=== PATIENT | female | born 1980 | race Caucasian/White ===

== ENCOUNTER 2016-06-21 01:58 | Emergency (ER) | payer MEDICAID, SELFPAY ==
[2016-06-21] MEDS ORDERED: HYDROcodone/Acetaminophen 10/325 mg Tablet ONE (02:21)
--- NOTE | 2016-06-21 08:43 | RAD ---
LEFT KNEE 4 VIEWS: Date: 06/21/16 HISTORY: Trauma. Left knee pain. FINDINGS/IMPRESSION: Comparison made with exam of 07/08/15. Postop changes and degenerative changes are again seen. No acute fracture or dislocation is identifi ed. POS: [facility]
== END 2016-06-21 03:25 | disposition home or self-care (01) ==
LOC: MADERS 01:58
DX: S83.92XA Sprain of unspecified site of left knee, initial encounter (principal); D64.9 Anemia, unspecified; F17.210 Nicotine dependence, cigarettes, uncomplicated; Z79.899 Other long term (current) drug therapy; X50.1XXA Overexertion from prolonged static or awkward postures, initial encounter

== ENCOUNTER 2016-09-02 22:11 | Emergency (ER) | payer MEDICAID, OTHER ==
[~2016-09-02 22:11] MED LIST: Iopamidol 370 76% 100 ML VIAL ONE
[2016-09-02] MEDS ORDERED: HYDROcodone/Acetaminophen 10/325 mg Tablet ONE (22:55)
[2016-09-02] MEDS ORDERED: Naproxen 500 MG TAB ONE (22:55)
[2016-09-02 23:24] LABS: ALT (SGPT) 15 U/L (8-55); AST (SGOT) 16 U/L (5-34); Albumin 3.7 g/dL (3.5-5.0); Alkaline Phosphatase 98 U/L (40-150); Anion Gap 19 mmol/L (10-20); BUN (Urea Nitrogen) 14 mg/dL (7.0-18.7); Bilirubin, Total 0.3 mg/dL (0.2-1.2); CRP (Inflammatory) 2.63 mg/dL (= or < 0.5); Calc. Creatinine Clearance 0 mL/min (70-130); Calcium 8.8 mg/dL (7.8-10.44); Carbon Dioxide 20 mmol/L (22-29); Chloride 105 mmol/L (98-107); Estimated GFR-MDRD 72; Globulin 3.9 g/dL (2.4-3.5); Glucose 98 mg/dL (70-105); Potassium 3.6 mmol/L (3.5-5.1); Protein, Total 7.6 g/dL (6.0-8.3); Sodium 140 mmol/L (136-145)
[2016-09-02 23:34] LABS: #Eosinphils 0.2 thou/uL (0.0-0.7); #Lymphocytes 2.3 thou/uL (1.20-3.40); #Monocytes 0.5 thou/uL (0.11-0.59); %Basophils 0.5 % (0.0-1.0); %Eosinophils 1.9 % (0.0-10.0); %Monocytes 6.3 % (0.0-10.0); %Neutrophils 62.3 % (42.0-75.0); Hemoglobin 9.9 g/dL (12.0-16.0); Mean Corpuscular HGB CONC 30.9 g/dL (32.0-36.0); Mean Corpuscular Hemoglobin 21.3 pg (27.0-31.0); Mean Corpuscular Volume 69.1 fl (81.0-99.0); Mean Platelet Volume 7.9 fL (7.4-10.4); Platelet Count 305 thou/uL (130-400); RBC Distribution Width 16.5 % (11.5-14.5); Red Blood Cell (RBC) Count 4.65 mill/uL (4.20-5.40)
[2016-09-02 23:35] LABS: Anisocytosis SLIGHT = 6-15 cells (100X) (0-5/hpf); MDiff Complete? YES; Microcytosis MODERATE=15-30 cells (100X) (0-5/hpf); Polychromasia SLIGHT = 2-3 cells (100X) (0-2/hpf)
--- NOTE | 2016-09-02 23:45 | CT ---
LEFT KNEE CT SCAN WITHOUT IV CONTRAST: 09/02/16 HISTORY: Knee pain. CT examination of the left knee is performed without IV contrast. There are extensive postoperative changes evidence for ACL repair. There appears to be some loosening of the ACL repair screw in the p roximal tibia. The tibia is somewhat posteriorly subluxed relative to the femur suggesting significa nt cruciate ligament instability or insufficiency. Several intra-articular bodies are noted. No evid ence for acute fracture or dislocation. Significant arthrosis changes. There is some nonspecific sub cutaneous fat stranding. No evidence of bony lesions or destructive changes to suggest osteomyelitis . IMPRESSION: Some posterior subluxation of the proximal tibia relative to the distal femur suggesting ligamentous injury/instability/insufficiency. Postoperative ACL changes with probably loosening around the tibi al fixation screw. Multiple small intra-articular bodies. No evidence for acute fracture or dislocat ion. No significant suprapatellar recess fluid distention. No acute fracture or dislocation. Recomme nd followup nonemergent MRI for more complete evaluation in regard to internal derangement and poten tial ligamentous injury. POS: [facility]
== END 2016-09-03 00:30 | disposition home or self-care (01) ==
LOC: MADERS 22:11
DX: M25.562 Pain in left knee (principal); E66.9 Obesity, unspecified; F17.210 Nicotine dependence, cigarettes, uncomplicated; Z79.899 Other long term (current) drug therapy
CPT/HCPCS: 80053; 85025; 86140; 87040

== ENCOUNTER 2016-12-24 15:15 | Emergency (ER) | payer OTHER ==
[2016-12-24] MEDS ORDERED: HYDROcodone/Acetaminophen 10/325 mg Tablet ONE (16:09)
== END 2016-12-24 16:12 | disposition home or self-care (01) ==
LOC: MADERS 15:15
DX: M25.562 Pain in left knee (principal); E66.01 Morbid (severe) obesity due to excess calories; F43.10 Post-traumatic stress disorder, unspecified; F32.9 Major depressive disorder, single episode, unspecified; F41.9 Anxiety disorder, unspecified; F17.200 Nicotine dependence, unspecified, uncomplicated; Z79.899 Other long term (current) drug therapy
CPT/HCPCS: 99283

== ENCOUNTER 2017-04-07 13:04 | Emergency (ER) | payer OTHER ==
[2017-04-07] MEDS ORDERED: MORPHINE 10 MG/ML SYRINGE ONE (13:33)
[2017-04-07 14:10] LABS: Anion Gap 13 mmol/L (10-20); BUN (Urea Nitrogen) 16 mg/dL (7.0-18.7); Calc. Creatinine Clearance 0 mL/min (70-130); Calcium 8.6 mg/dL (7.8-10.44); Carbon Dioxide 19 mmol/L (22-29); Chloride 111 mmol/L (98-107); Estimated GFR-MDRD Greater than 90; Glucose 109 mg/dL (70-105); Sodium 139 mmol/L (136-145)
[2017-04-07 14:11] LABS: #Eosinphils 0.1 thou/uL (0.0-0.7); #Lymphocytes 2.2 thou/uL (1.20-3.40); #Monocytes 0.5 thou/uL (0.11-0.59); #Neutrophils 7.6 thou/uL (1.40-6.50); %Basophils 0.4 % (0.0-1.0); %Eosinophils 0.9 % (0.0-10.0); %Lymphocytes 21.6 % (21.0-51.0); %Monocytes 4.5 % (0.0-10.0); %Neutrophils 72.7 % (42.0-75.0); Anisocytosis SLIGHT = 6-15 cells (100X) (0-5/hpf); Hemoglobin 9.9 g/dL (12.0-16.0); Hypochromia SLIGHT = 6-15 cells (100X) (0-5/hpf); MDiff Complete? YES; Mean Corpuscular Hemoglobin 21.6 pg (27.0-31.0); Mean Platelet Volume 8.4 fL (7.4-10.4); Microcytosis SLIGHT = 6-15 cells (100X) (0-5/hpf); Ovalocytes SLIGHT = 2-5 cells (100X) (0-1/hpf); PLT Morphology Comment Appears Adequate; Platelet Count 303 thou/uL (130-400); Poikilocytosis SLIGHT = 6-15 cells (100X) (0-5/hpf); RBC Distribution Width 17.2 % (11.5-14.5); Red Blood Cell (RBC) Count 4.58 mill/uL (4.20-5.40); White Blood Cell (WBC) Count 10.4 thou/uL (4.8-10.8)
== END 2017-04-07 14:52 | disposition home or self-care (01) ==
LOC: MADERS 13:04
DX: G89.29 Other chronic pain (principal); M25.562 Pain in left knee; E66.01 Morbid (severe) obesity due to excess calories; D64.9 Anemia, unspecified; F41.9 Anxiety disorder, unspecified; Z79.899 Other long term (current) drug therapy
CPT/HCPCS: 36415; 80048; 85025; 85379; 96372; J2270

== ENCOUNTER 2017-10-23 05:19 | Emergency (ER) | payer OTHER ==
[2017-10-23] MEDS ORDERED: Ibuprofen 800 MG TAB ONE (05:38)
[2017-10-23] MEDS ORDERED: predniSONE 20 MG TAB ONE (05:41)
--- NOTE | 2017-10-23 08:16 | RAD ---
LEFT KNEE: HISTORY: Injury with pain. COMPARISON: 06/21/16. FINDINGS: There are postoperative and degenerative changes of the left knee. There is loss of both medial and lateral joint space with hypertrophic spurring and chondrocalcinosis. Screws are seen in the distal femur and proximal tibia which are stable from the prior exam. [place] in the distal femur from ACL r epair. Narrowing and degenerative change at the patellofemoral joint is prominent. No definite frac ture identified; however, prominent soft tissue attenuation obscures detail. No significant joint effusion apparent. IMPRESSION: Postoperative changes and severe degenerative changes of left knee noted. POS: [facility]
== END 2017-10-23 06:19 | disposition home or self-care (01) ==
LOC: MADERS 05:19
DX: M25.562 Pain in left knee (principal); D64.9 Anemia, unspecified; D41.9 Neoplasm of uncertain behavior of unspecified urinary organ; F43.10 Post-traumatic stress disorder, unspecified; F32.9 Major depressive disorder, single episode, unspecified; F17.210 Nicotine dependence, cigarettes, uncomplicated; Z79.899 Other long term (current) drug therapy; X50.1XXA Overexertion from prolonged static or awkward postures, initial encounter
CPT/HCPCS: J7506

== ENCOUNTER 2017-12-07 07:40 | Emergency (ER) | payer OTHER ==
--- NOTE | 2017-12-07 09:07 | RAD ---
2 VIEWS LEFT KNEE: Date: 12/07/17 INDICATION: Fall with left knee pain. COMPARISON: Prior exam dated 10/23/17. FINDINGS: Postprocedural change of prior ACL reconstruction is similar appearing. Advanced osteoarthrosis of th e left knee is similar appearing. The tibial and femoral screws, as well as the interference screw wi thin the distal femur are unchanged. No definite acute fracture is evident. IMPRESSION: 1. Stable severe osteoarthrosis of the left knee. 2. Stable postoperative changes of the left knee. POS: [facility]
== END 2017-12-07 09:25 | disposition home or self-care (01) ==
LOC: MADERS 07:40
DX: S83.91XA Sprain of unspecified site of right knee, initial encounter (principal); D64.9 Anemia, unspecified; F32.9 Major depressive disorder, single episode, unspecified; F41.9 Anxiety disorder, unspecified; F43.10 Post-traumatic stress disorder, unspecified; F17.210 Nicotine dependence, cigarettes, uncomplicated; E66.9 Obesity, unspecified; Z79.899 Other long term (current) drug therapy; X50.1XXA Overexertion from prolonged static or awkward postures, initial encounter

== ENCOUNTER 2018-01-04 21:10 | Emergency (ER) | payer OTHER ==
[2018-01-04] MEDS ORDERED: Ibuprofen 800 MG TAB ONE (21:25)
--- NOTE | 2018-01-04 21:55 | RAD ---
CHEST TWO VIEWS: 01/04/18 INDICATION: History of cough. COMPARISON: Prior study dated 10/01/12. FINDINGS: No consolidation is evident. No pleural effusion is evident. No pulmonary vascular congestion is evid ent. Heart size is normal. No acute osseous abnormality is noted. IMPRESSION: No acute cardiopulmonary abnormality. POS: [facility]
== END 2018-01-04 22:05 | disposition home or self-care (01) ==
LOC: MADERS 21:10
DX: B34.9 Viral infection, unspecified (principal); F41.9 Anxiety disorder, unspecified; F32.9 Major depressive disorder, single episode, unspecified; F17.200 Nicotine dependence, unspecified, uncomplicated; E66.01 Morbid (severe) obesity due to excess calories; Z79.899 Other long term (current) drug therapy
CPT/HCPCS: 71046; 87804; 99406

== ENCOUNTER 2018-03-09 08:06 | Emergency (ER) | payer OTHER | END 2018-03-09 08:37 | disposition home or self-care (01) | LOC: MADERS 08:06 | DX: M25.562 Pain in left knee (principal); G89.29 Other chronic pain; E66.01 Morbid (severe) obesity due to excess calories; D64.9 Anemia, unspecified; F41.9 Anxiety disorder, unspecified; F43.10 Post-traumatic stress disorder, unspecified; Z79.899 Other long term (current) drug therapy; F17.210 Nicotine dependence, cigarettes, uncomplicated | CPT/HCPCS: 99281 ==

== ENCOUNTER 2018-03-25 15:20 | Emergency (ER) | payer OTHER ==
[2018-03-25 17:05] LABS: Hemoglobin 12.1 g/dL (12.0-16.0); Mean Corpuscular HGB CONC 30.1 g/dL (32.0-36.0); Mean Corpuscular Hemoglobin 23.8 pg (27.0-31.0); Mean Corpuscular Volume 79.2 fL (78.0-98.0); Platelet Count 348 thou/uL (130-400); RBC Distribution Width 15.8 % (11.5-14.5); Red Blood Cell (RBC) Count 5.09 mill/uL (4.20-5.40); White Blood Cell (WBC) Count 11.5 thou/uL (4.8-10.8)
[2018-03-25 17:09] LABS: BHCG - Serum Negative (NEGATIVE); Pregs Control Background? CLEAR/WHITE (CLR/WHITE); Pregs Control Bar Appear? YES (CONTROL BAR)
[2018-03-25 17:44] LABS: #Basophils 0.1 thou/uL (0.0-0.2); #Eosinphils 0.2 thou/uL (0.0-0.7); #Lymphocytes 3.1 thou/uL (1.20-3.40); #Monocytes 0.7 thou/uL (0.11-0.59); #Neutrophils 7.5 thou/uL (1.40-6.50); %Basophils 0.5 % (0.0-1.0); %Eosinophils 1.5 % (0.0-10.0); %Lymphocytes 26.7 % (21.0-51.0); %Monocytes 6.4 % (0.0-10.0); %Neutrophils 64.9 % (42.0-75.0); MDiff Complete? YES; Microcytosis SLIGHT = 6-15 cells (100X) (0-5/hpf); Platelet Morphology Comment Appears Adequate
== END 2018-03-25 17:40 | disposition home or self-care (01) ==
LOC: MADERS 15:20
DX: N92.0 Excessive and frequent menstruation with regular cycle (principal); E66.01 Morbid (severe) obesity due to excess calories; D64.9 Anemia, unspecified; F41.9 Anxiety disorder, unspecified; F17.210 Nicotine dependence, cigarettes, uncomplicated; Z79.899 Other long term (current) drug therapy
CPT/HCPCS: 84703; 85025; 99284

== ENCOUNTER 2018-04-08 17:45 | Emergency (ER) | payer OTHER ==
[2018-04-08] MEDS ORDERED: Ondansetron ODT 4 MG TAB ONE (17:57)
[2018-04-08] MEDS ORDERED: Loperamide HCl 2 MG CAP ONE (18:31)
== END 2018-04-08 19:43 | disposition home or self-care (01) ==
LOC: MADERS 17:45
DX: R11.2 Nausea with vomiting, unspecified (principal); R19.7 Diarrhea, unspecified; D64.9 Anemia, unspecified; F41.9 Anxiety disorder, unspecified; F32.9 Major depressive disorder, single episode, unspecified; F43.10 Post-traumatic stress disorder, unspecified; F17.210 Nicotine dependence, cigarettes, uncomplicated; Z79.899 Other long term (current) drug therapy
CPT/HCPCS: 99283; Q0162

== ENCOUNTER 2018-05-03 21:32 | Emergency (ER) | payer OTHER | END 2018-05-03 22:00 | disposition home or self-care (01) | LOC: MADERS 21:32 | DX: H65.92 Unspecified nonsuppurative otitis media, left ear (principal); E66.01 Morbid (severe) obesity due to excess calories; F41.9 Anxiety disorder, unspecified; F32.9 Major depressive disorder, single episode, unspecified; F43.10 Post-traumatic stress disorder, unspecified; F17.200 Nicotine dependence, unspecified, uncomplicated; Z79.899 Other long term (current) drug therapy | CPT/HCPCS: 99282 ==

== ENCOUNTER 2018-07-23 20:07 | Emergency (ER) | payer OTHER ==
[2018-07-23] MEDS ORDERED: Sodium Chloride 0.9% 1,000 ML ONE (20:38)
[2018-07-23] MEDS ORDERED: Ketorolac Tromethamine 30 MG/ML VIAL ONE (20:38)
[2018-07-23] MEDS ORDERED: Ondansetron PF 4 MG/2 ML Vial ONE (20:38)
[2018-07-23 21:13] LABS: #Eosinphils 0.2 thou/uL (0.0-0.7); #Lymphocytes 2.4 thou/uL (1.20-3.40); #Monocytes 0.6 thou/uL (0.11-0.59); #Neutrophils 6.5 thou/uL (1.40-6.50); %Basophils 0.3 % (0.0-1.0); %Eosinophils 1.9 % (0.0-10.0); %Lymphocytes 24.2 % (21.0-51.0); %Monocytes 6.6 % (0.0-10.0); Hemoglobin 11.3 g/dL (12.0-16.0); Hypochromia SLIGHT = 6-15 cells (100X) (0-5/hpf); MDiff Complete? YES; Macrocytosis SLIGHT = 6-15 cells (100X) (0-5/hpf); Mean Corpuscular HGB CONC 31.2 g/dL (32.0-36.0); Mean Corpuscular Hemoglobin 24.3 pg (27.0-31.0); Mean Corpuscular Volume 77.9 fL (78.0-98.0); Mean Platelet Volume 7.1 fL (7.4-10.4); Microcytosis SLIGHT = 6-15 cells (100X) (0-5/hpf); Platelet Count 269 thou/uL (130-400); Platelet Morphology Comment Appears Adequate; RBC Distribution Width 15.6 % (11.5-14.5); RBC Morphology Abnormal; Red Blood Cell (RBC) Count 4.67 mill/uL (4.20-5.40); White Blood Cell (WBC) Count 9.8 thou/uL (4.8-10.8)
[2018-07-23 21:14] LABS: BHCG - Serum Negative (NEGATIVE); Pregs Control Background? CLEAR/WHITE (CLR/WHITE); Pregs Control Bar Appear? YES (CONTROL BAR)
[2018-07-23 21:19] LABS: ALT (SGPT) 9 U/L (8-55); AST (SGOT) 10 U/L (5-34); Albumin 3.6 g/dL (3.5-5.0); Alkaline Phosphatase 91 U/L (40-150); Anion Gap 11 mmol/L (10-20); BUN (Urea Nitrogen) 10 mg/dL (7.0-18.7); Bilirubin, Total 0.5 mg/dL (0.2-1.2); Calc. Creatinine Clearance 0 mL/min (70-130); Calcium 8.7 mg/dL (7.8-10.44); Carbon Dioxide 27 mmol/L (22-29); Chloride 107 mmol/L (98-107); Estimated GFR-MDRD 84; Globulin 3.6 g/dL (2.4-3.5); Glucose 105 mg/dL (70-105); Lipase 11 U/L (8-78); Potassium 3.6 mmol/L (3.5-5.1); Protein, Total 7.2 g/dL (6.0-8.3); Sodium 141 mmol/L (136-145)
== END 2018-07-23 22:00 | disposition home or self-care (01) ==
LOC: MADERS 20:07
DX: R11.2 Nausea with vomiting, unspecified (principal); R19.7 Diarrhea, unspecified; R10.9 Unspecified abdominal pain; F41.9 Anxiety disorder, unspecified; F32.9 Major depressive disorder, single episode, unspecified; F43.10 Post-traumatic stress disorder, unspecified; F17.210 Nicotine dependence, cigarettes, uncomplicated; E66.01 Morbid (severe) obesity due to excess calories; D64.9 Anemia, unspecified; Z79.899 Other long term (current) drug therapy
CPT/HCPCS: 36415; 80053; 83690; 84703; 85025; 96361; 96374; 96375; J1885; J2405; J7050

== ENCOUNTER 2018-08-21 14:01 | Emergency (ER) | payer OTHER ==
[2018-08-21] MEDS ORDERED: Ibuprofen 800 MG TAB ONE (15:03)
--- NOTE | 2018-08-21 15:03 | RAD ---
EXAM: XR Knee Lt 4 View STANDARD PROVIDED CLINICAL HISTORY: Pain FINDINGS: Comparison 12/07/2017. Postoperative change and degenerative change are redemonstrated. There is no ev idence for fracture or other acute osseous abnormality. Alignment appears anatomic. IMPRESSION: No evidence for an acute osseous abnormality. If there is persistent clinical concern, conservative m anagement and follow-up imaging advised.
== END 2018-08-21 15:50 | disposition home or self-care (01) ==
LOC: MADERS 14:01
DX: S83.92XA Sprain of unspecified site of left knee, initial encounter (principal); D64.9 Anemia, unspecified; E66.01 Morbid (severe) obesity due to excess calories; F32.9 Major depressive disorder, single episode, unspecified; F41.9 Anxiety disorder, unspecified; F43.10 Post-traumatic stress disorder, unspecified; F17.210 Nicotine dependence, cigarettes, uncomplicated; W18.2XXA Fall in (into) shower or empty bathtub, initial encounter; Z79.899 Other long term (current) drug therapy

== ENCOUNTER 2018-11-15 08:15 | Emergency (ER) | payer OTHER ==
[2018-11-15 08:50] LABS: Clarity Cloudy (Clear)
[2018-11-15 08:58] LABS: Glucose, Urine (Dipstick) Negative (Negative); Protein, Urine (Dipstick) 100 mg/dL (Neg-Trace)
[2018-11-15 08:59] LABS: Bilirubin Unable to Interpret (Negative); Blood, Urine Large (Negative)
[2018-11-15 09:00] LABS: Nitrite Unable to Interpret (Negative)
[2018-11-15 09:01] LABS: Leukocyte Unable to Interpret (Negative); RBC/HPF Greater than 50 HPF (0-3)
[2018-11-15 09:05] LABS: Bacteria/HPF Rare-Few HPF (None Seen); Squamous Epithelial 0-3 HPF (0-3); WBC/HPF 0-3 HPF (0-3)
[2018-11-15 09:42] LABS: Prothrombin Time 12.7 SEC (12.0-14.7)
[2018-11-15 09:43] LABS: #Basophils 0.1 thou/uL (0.0-0.2); #Eosinphils 0.2 thou/uL (0.0-0.7); #Lymphocytes 2.5 thou/uL (1.20-3.40); #Monocytes 0.5 thou/uL (0.11-0.59); #Neutrophils 7.2 thou/uL (1.40-6.50); %Basophils 0.5 % (0.0-1.0); %Eosinophils 1.7 % (0.0-10.0); %Lymphocytes 24.1 % (21.0-51.0); %Monocytes 4.8 % (0.0-10.0); %Neutrophils 68.9 % (42.0-75.0); Hemoglobin 11.2 g/dL (12.0-16.0); Mean Corpuscular HGB CONC 30.6 g/dL (32.0-36.0); Mean Corpuscular Hemoglobin 24.5 pg (27.0-31.0); Mean Platelet Volume 6.7 fL (7.4-10.4); Platelet Count 296 thou/uL (130-400); RBC Distribution Width 15.1 % (11.5-14.5); Red Blood Cell (RBC) Count 4.57 mill/uL (4.20-5.40); White Blood Cell (WBC) Count 10.4 thou/uL (4.8-10.8)
[2018-11-15 09:52] LABS: ALT (SGPT) 12 U/L (8-55); AST (SGOT) 12 U/L (5-34); Albumin 3.9 g/dL (3.5-5.0); Alkaline Phosphatase 90 U/L (40-150); Anion Gap 15 mmol/L (10-20); BUN (Urea Nitrogen) 12 mg/dL (7.0-18.7); Bilirubin, Total 0.3 mg/dL (0.2-1.2); Calc. Creatinine Clearance 0 mL/min (70-130); Calcium 8.8 mg/dL (7.8-10.44); Carbon Dioxide 21 mmol/L (22-29); Chloride 108 mmol/L (98-107); Estimated GFR-MDRD 73; Globulin 3.7 g/dL (2.4-3.5); Glucose 121 mg/dL (70-105); Potassium 3.6 mmol/L (3.5-5.1); Protein, Total 7.6 g/dL (6.0-8.3); Sodium 140 mmol/L (136-145)
[2018-11-15 09:54] LABS: Anisocytosis SLIGHT = 6-15 cells (100X) (0-5/hpf)
[2018-11-15 09:55] LABS: Platelet Morphology Comment Appears Adequate
== END 2018-11-15 11:32 | disposition home or self-care (01) ==
LOC: MADERS 08:15
DX: N94.6 Dysmenorrhea, unspecified (principal); E66.01 Morbid (severe) obesity due to excess calories; D64.9 Anemia, unspecified; F32.9 Major depressive disorder, single episode, unspecified; F41.9 Anxiety disorder, unspecified; F43.10 Post-traumatic stress disorder, unspecified; F17.210 Nicotine dependence, cigarettes, uncomplicated
CPT/HCPCS: 80053; 81001; 85025; 85610; 99284

== ENCOUNTER 2019-02-07 10:46 | Emergency (ER) | payer OTHER ==
[2019-02-07 11:16] LABS: Bilirubin Negative (Negative); Blood, Urine Large (Negative); Clarity Cloudy (Clear); Glucose, Urine (Dipstick) Negative (Negative); Leukocyte Small (Negative); Nitrite Negative (Negative); Protein, Urine (Dipstick) 30 mg/dL (Neg-Trace)
[2019-02-07 11:19] LABS: Bacteria/HPF Rare-Few HPF (None Seen); Trichomonas/HPF 1+ HPF (None Seen)
[2019-02-07] MEDS ORDERED: Sodium Chloride 0.9% 1,000 ML ONE (11:47)
[2019-02-07] MEDS ORDERED: Sodium Chloride 0.9% 100 ML ONE (11:47)
[2019-02-07] MEDS ORDERED: Ondansetron PF 4 MG/2 ML Vial ONE (11:47)
[2019-02-07] MEDS ORDERED: cefTRIAXone\\ROCEPHIN 1 GM VIAL ONE (11:47)
[2019-02-07 12:31] LABS: Bilirubin Negative (Negative); Blood, Urine Trace (Negative); Clarity Clear (Clear); Glucose, Urine (Dipstick) Negative (Negative); Leukocyte Negative (Negative); Nitrite Negative (Negative); Protein, Urine (Dipstick) Negative (Neg-Trace)
== END 2019-02-07 13:16 | disposition short-term general hospital (02) ==
LOC: MADERS 10:46
DX: N39.0 Urinary tract infection, site not specified (principal); D64.9 Anemia, unspecified; F41.9 Anxiety disorder, unspecified; F43.10 Post-traumatic stress disorder, unspecified; F17.210 Nicotine dependence, cigarettes, uncomplicated; E66.01 Morbid (severe) obesity due to excess calories; R11.2 Nausea with vomiting, unspecified; Z79.899 Other long term (current) drug therapy; Z71.6 Tobacco abuse counseling
CPT/HCPCS: 51701; 81003; 81015; 87086; 96365; 96375; 99406; A4353; J0696; J2405; J3490; J7050

== ENCOUNTER 2019-04-03 13:14 | Outpatient (CLI) | payer OTHER ==
[2019-04-03 13:59] LABS: #Basophils 0.1 thou/uL (0.0-0.2); #Eosinphils 0.2 thou/uL (0.0-0.7); #Lymphocytes 2.4 thou/uL (1.20-3.40); #Monocytes 0.5 thou/uL (0.11-0.59); #Neutrophils 7.1 thou/uL (1.40-6.50); %Basophils 0.6 % (0.0-1.0); %Eosinophils 1.9 % (0.0-10.0); %Lymphocytes 23.7 % (21.0-51.0); %Monocytes 4.9 % (0.0-10.0); %Neutrophils 68.9 % (42.0-75.0); Anisocytosis SLIGHT = 6-15 cells (100X) (0-5/hpf); Elliptocytes SLIGHT = 2-5 cells (100X) (0-1/hpf); Hemoglobin 11.1 g/dL (12.0-16.0); Hypochromia SLIGHT = 6-15 cells (100X) (0-5/hpf); MDiff Complete? YES; Mean Corpuscular HGB CONC 29.8 g/dL (32.0-36.0); Mean Corpuscular Hemoglobin 24.1 pg (27.0-31.0); Mean Platelet Volume 7.5 fL (7.4-10.4); Platelet Count 289 thou/uL (130-400); Poikilocytosis SLIGHT = 6-15 cells (100X) (0-5/hpf); RBC Distribution Width 14.7 % (11.5-14.5); Red Blood Cell (RBC) Count 4.62 mill/uL (4.20-5.40); White Blood Cell (WBC) Count 10.3 thou/uL (4.8-10.8)
[2019-04-03 14:10] LABS: ALT (SGPT) 12 U/L (8-55); AST (SGOT) 11 U/L (5-34); Albumin 3.8 g/dL (3.5-5.0); Alkaline Phosphatase 93 U/L (40-110); Anion Gap 15 mmol/L (10-20); BUN (Urea Nitrogen) 16 mg/dL (7.0-18.7); Bilirubin, Total 0.3 mg/dL (0.2-1.2); Calc. Creatinine Clearance 0 mL/min (70-130); Calcium 9.1 mg/dL (7.8-10.44); Carbon Dioxide 24 mmol/L (22-29); Chloride 108 mmol/L (98-107); Cholesterol 145 mg/dl (< 200 Desired); Estimated GFR-MDRD 81; Globulin 3.4 g/dL (2.4-3.5); Glucose 106 mg/dL (70-105); HDL Cholesterol 48 mg/dL (>60 Neg Risk); LDL Cholesterol, Calculated 77 mg/dL; Potassium 3.8 mmol/L (3.5-5.1); Protein, Total 7.2 g/dL (6.0-8.3); Sodium 143 mmol/L (136-145); Triglycerides 100 mg/dL (Less than 150)
--- NOTE | 2019-04-03 15:27 | RAD ---
LEFT KNEE 4 VIEWS: HISTORY: Pain with recent trauma. COMPARISON: 08/21/2018. FINDINGS: Extensive postoperative changes. Severe tricompartment arthrosis and joint space narrowing. No evid ence for acute fracture or dislocation. IMPRESSION: Severe tricompartment arthrosis. No acute fracture or dislocation. Stable postoperative changes. POS: [facility]
[2019-04-03 21:57] LABS: Hemoglobin A1c 5.3 % (4.0-6.0)
[2019-04-03 22:21] LABS: Ferritin 11.5 ng/mL (10-291); T4 8.1 ug/dL (4.87-11.72)
[2019-04-04 00:06] LABS: Vitamin D, 25 Hydroxy 9.8 ng/ml (> 30.0)
[2019-04-05 08:12] LABS: Triidothyronine-T3 126 ng/dL (71-180)
== END 2019-04-03 13:15 | disposition home or self-care (01) ==
LOC: MADLAB 13:14
PROVIDERS: ATTEND Specialist
DX: M17.32 Unilateral post-traumatic osteoarthritis, left knee (principal); Z98.890 Other specified postprocedural states
CPT/HCPCS: 36415; 80053; 80061; 82306; 82607; 82728; 82746; 83036; 83540; 83970; 84425; 84436; 84443; 84480; 85025

== ENCOUNTER 2019-04-11 14:46 | Emergency (ER) | payer OTHER ==
[2019-04-11] MEDS ORDERED: Sodium Chloride 0.9% 1,000 ML ONE (15:35)
[2019-04-11] MEDS ORDERED: Promethazine HCl 25 MG/ML VIAL ONE (15:35)
[2019-04-11 15:43] LABS: Bilirubin Negative (Negative); Blood, Urine Large (Negative); Glucose, Urine (Dipstick) Negative (Negative); Leukocyte Small (Negative); Nitrite Negative (Negative); Protein, Urine (Dipstick) 30 mg/dL (Neg-Trace)
[2019-04-11 15:45] LABS: Clarity Hazy (Clear)
[2019-04-11 15:51] LABS: Bacteria/HPF Rare-Few HPF (None Seen); Trichomonas/HPF 1+ HPF (None Seen)
[2019-04-11 15:56] LABS: ALT (SGPT) 13 U/L (8-55); AST (SGOT) 14 U/L (5-34); Alkaline Phosphatase 94 U/L (40-110); Anion Gap 15 mmol/L (10-20); BUN (Urea Nitrogen) 16 mg/dL (7.0-18.7); Bilirubin, Total 0.4 mg/dL (0.2-1.2); Calc. Creatinine Clearance 0 mL/min (70-130); Calcium 9.2 mg/dL (7.8-10.44); Carbon Dioxide 25 mmol/L (22-29); Chloride 105 mmol/L (98-107); Estimated GFR-MDRD 79; Globulin 3.7 g/dL (2.4-3.5); Glucose 118 mg/dL (70-105); Lipase 12 U/L (8-78); Potassium 3.5 mmol/L (3.5-5.1); Protein, Total 7.7 g/dL (6.0-8.3); Sodium 141 mmol/L (136-145)
[2019-04-11 16:05] LABS: #Basophils 0.1 thou/uL (0.0-0.2); #Eosinphils 0.1 thou/uL (0.0-0.7); #Lymphocytes 2.8 thou/uL (1.20-3.40); #Monocytes 0.6 thou/uL (0.11-0.59); #Neutrophils 8.1 thou/uL (1.40-6.50); %Basophils 0.5 % (0.0-1.0); %Lymphocytes 24.1 % (21.0-51.0); %Neutrophils 69.5 % (42.0-75.0); Hemoglobin 11.5 g/dL (12.0-16.0); Mean Corpuscular HGB CONC 29.3 g/dL (32.0-36.0); Mean Corpuscular Hemoglobin 23.6 pg (27.0-31.0); Mean Corpuscular Volume 80.4 fL (78.0-98.0); Mean Platelet Volume 6.9 fL (7.4-10.4); Platelet Count 307 thou/uL (130-400); RBC Distribution Width 14.4 % (11.5-14.5); Red Blood Cell (RBC) Count 4.89 mill/uL (4.20-5.40); White Blood Cell (WBC) Count 11.7 thou/uL (4.8-10.8)
[2019-04-11 16:17] LABS: Polychromasia SLIGHT = 2-3 cells (100X) (0-2/hpf)
[2019-04-11] MEDS ORDERED: Dicyclomine 10 MG CAP ONE (16:27)
== END 2019-04-11 17:15 | disposition home or self-care (01) ==
LOC: MADERS 14:46
DX: K52.9 Noninfective gastroenteritis and colitis, unspecified (principal); F41.9 Anxiety disorder, unspecified; F32.9 Major depressive disorder, single episode, unspecified; F43.10 Post-traumatic stress disorder, unspecified; D64.9 Anemia, unspecified; F17.210 Nicotine dependence, cigarettes, uncomplicated; Z79.891 Long term (current) use of opiate analgesic; Z79.899 Other long term (current) drug therapy
CPT/HCPCS: 80053; 81003; 81015; 83690; 84702; 85025; 96365; J2550; J7050

== ENCOUNTER 2019-07-28 21:29 | Emergency (ER) | payer OTHER | END 2019-07-28 21:54 | disposition home or self-care (01) | LOC: MADERS 21:29 | DX: M25.562 Pain in left knee (principal); D64.9 Anemia, unspecified; F41.9 Anxiety disorder, unspecified; F32.9 Major depressive disorder, single episode, unspecified; F43.10 Post-traumatic stress disorder, unspecified; Z79.899 Other long term (current) drug therapy | CPT/HCPCS: 99406 ==

== ENCOUNTER 2019-10-16 01:18 | Emergency (ER) | payer OTHER ==
[2019-10-16] MEDS ORDERED: Ketorolac Tromethamine 60 MG/2 ML VIAL ONE (01:55)
== END 2019-10-16 02:18 | disposition home or self-care (01) ==
LOC: MADERS 01:18
DX: M25.512 Pain in left shoulder (principal); E66.01 Morbid (severe) obesity due to excess calories; D64.9 Anemia, unspecified; F41.9 Anxiety disorder, unspecified; F32.9 Major depressive disorder, single episode, unspecified; F43.10 Post-traumatic stress disorder, unspecified; F17.210 Nicotine dependence, cigarettes, uncomplicated
CPT/HCPCS: 96372; 99283; J1885

== ENCOUNTER 2020-10-21 11:35 | Outpatient (CLI) | payer OTHER ==
[2020-10-21 13:42] LABS: Amphetamine Not Detected (NotDetected); Barbiturates Screen Not Detected (NotDetected); Benzodiazepine Screen Not Detected (NotDetected); Cocaine Metabolite Screen Not Detected (NotDetected); Medtox Control Line Valid? VALID (VALID); Methadone Not Detected (NotDetected); Methamphetamine Not Detected (NotDetected); Opiate Screen Detected (NotDetected); Oxycodone Screen Not Detected (NotDetected); Phencyclidine (PCP) Not Detected (NotDetected); THC/Cannabinoid Screen Not Detected (NotDetected); Tricyclic Screen Not Detected (NotDetected)
== END 2020-10-21 11:36 | disposition home or self-care (01) ==
LOC: MADLAB 11:35
PROVIDERS: ATTEND Family Medicine
DX: G89.29 Other chronic pain (principal); T14.90XA Injury, unspecified, initial encounter
CPT/HCPCS: 80306